=== PATIENT | female | born 1985 ===

== ENCOUNTER 2017-10-08 08:01 | Day surgery (SDC) | payer SELFPAY ==
[2017-10-08 08:52] VITALS: BMI 26.6
[2017-10-08 09:03] VITALS: RESP 18
[2017-10-08] MEDS ORDERED: Lidocaine 1% Inj (20ml) ONE (10:25)
--- NOTE | 2017-10-08 10:50 | CP.SDSHP ---
Same Day Surgery H & P - History Proposed Procedure: US guided thyroid cyst aspiration Pre-Op Diagnosis: thyroid cyst - Allergies Allergies: Allergies No Known Allergies Allergy (Verified 10/08/17 08:52) - Physical Exam Vital Signs: Vital Signs 10/08/17 10/08/17 09:00 10:25 Temperature 98.7 F 98.8 F Pulse Rate 81 72 Respiratory 18 18 Rate Blood Pressure 118/75 116/70 O2 Sat by Pulse 98 Oximetry - Impression Impression: 32 yo female w/ thyroid cyst; plan us guided aspiration - Date & Time Date: 10/08/17 Time: 10:35 Short Stay Discharge - Short Stay Discharge Admitting Diagnosis/Reason for Visit: E01.1 Disposition: HOME/ ROUTINE Referrals: FAMILY PROVIDER,NO [Primary Care Provider] -
--- NOTE | 2017-10-08 10:51 | PCM.SURG1 ---
Surgeon's Initial Post Op Note - Surgeon's Notes Surgeon: Philippe Hopkins MD [employer] Supervisor: None Type of Anesthesia: Local Pre-Operative Diagnosis: thyroid cyst Operative Findings: large right thyroid cyst Post-Operative Diagnosis: same Operation Performed: US guided thyroid cyst aspiration Specimen/Specimens Removed: 3 cc serous fluid Estimated Blood Loss: EBL {In ML}: 0 Date of Surgery/Procedure: 10/08/17 Time of Surgery/Procedure: 10:45
[2017-10-08 11:47] VITALS: BP 106/73; PULSE 63; TEMP 98.4; O2SAT 96
--- NOTE | 2017-10-08 14:55 | US ---
PROCEDURE: ULTRASOUND-GUIDED THYROID CYST ASPIRATION CLINICAL HISTORY: 32-year-old female with right thyroid cyst is referred to Interventional Radiology for ultrasound-guided thyroid cyst aspiration. COMPARISON: Recent outside thyroid ultrasound. PROCEDURE: 1. Ultrasound-guided thyroid cyst aspiration. PRE-PROCEDURE FINDINGS: 1. Large right thyroid cyst. POST-PROCEDURE FINDINGS: 1. No evidence of post-procedural complication. INTERVENTIONAL RADIOLOGIST: Philippe Hopkins M.D. (the attending was present for the entire procedure.) ANESTHESIA: None. MEDICATION: Lidocaine 1% for local subcutaneous analgesia. COMPLICATIONS: None. PROCEDURE DESCRIPTION AND FINDINGS: The risks, benefits, alternatives and possible complications of the procedure were fully discussed; all questions were answered and informed consent was obtained. The patient was brought into the interventional suite and a pre-procedure 'time-out' was performed. The patient was placed on the ultrasound table in the supine position and the neck was passively extended. The anterior neck was prepped and draped in the usual sterile fashion. Maximum sterile barrier precautions were maintained throughout the entire procedure. Preliminary focused ultrasound images of the thyroid demonstrate the previously identified cyst referred for aspiration. Following subcutaneous infiltration of lidocaine 1% for local analgesia, under ultrasound guidance, aspiration was performed of the right thyroid cyst, with real-time visualization of needle entry. The ultrasound images were permanently recorded and sent to the PACS. 3 cc of serous fluid was aspirated and submitted to the laboratory for analysis. Adequate hemostasis was achieved utilizing manual compression. A sterile adhesive dressing was applied over the puncture site. The patient tolerated the procedure well without immediate post-procedure complications and was discharged home in stable condition. IMPRESSION: Successful ultrasound-guided aspiration of the right thyroid cyst.
== END 2017-10-08 11:45 | disposition home or self-care (01) ==
LOC: H.OPSURG 08:01
PROVIDERS: ATTEND Dentist General Practice
DX: E04.1 Nontoxic single thyroid nodule (principal)
CPT/HCPCS: 60300; 88104; 88305; C1729

== ENCOUNTER 2018-06-26 10:36 | Emergency (ER) | payer SELFPAY ==
[2018-06-26 10:54] VITALS: O2SAT 100; BMI 24.1
[2018-06-26] MEDS ORDERED: Sodium Chloride 0.9% 1,000 ML IV STA (11:19)
--- NOTE | 2018-06-26 11:24 | ED PDOC ---
HPI:Nausea, Vomiting, Diarrhea Time Seen by Provider: 06/26/18 11:01 Chief Complaint (Nursing): GI Problem Chief Complaint (Provider): Nausea History Per: Patient History/Exam Limitations: no limitations Onset/Duration Of Symptoms: Days (today) Additional Complaint(s): Pt. with nausea, vomiting, diarrhea, nonbloody. No weakness. Also with room spinning dizziness. No LOC. No weakness, headaches, chest pain, dyspnea, fever, cough. No numbness, tingles. No new food or drinks. No abd pain. Past Medical History Reviewed: Nursing Documentation, Vital Signs Vital Signs: Last Vital Signs Temp 97 F L 06/26/18 10:52 Pulse 63 06/26/18 10:52 Resp 19 06/26/18 11:02 BP 103/64 06/26/18 10:52 Pulse Ox 100 06/26/18 10:52 - Medical History PMH: No Chronic Diseases - Surgical History Surgical History: No Surg Hx - Family History Family History: States: Unknown Family Hx - Living Arrangements Living Arrangements: With Family - Home Medications Home Medications: Ambulatory Orders Medication Instructions Recorded Meclizine [Meclizine*] 25 mg PO Q12 PRN #10 tab 06/26/18 - Allergies Allergies/Adverse Reactions: Allergies Allergy/AdvReac Type Severity Reaction Status Date / Time No Known Allergies Allergy Verified 06/26/18 10:59 Review of Systems ROS Statement: Except As Marked, All Systems Reviewed And Found Negative Gastrointestinal: Positive for: Nausea, Vomiting, Diarrhea Neurological: Positive for: Dizziness Physical Exam - Reviewed Nursing Documentation Reviewed: Yes Vital Signs Reviewed: Yes - Physical Exam Appears: Positive for: Non-toxic, No Acute Distress Head Exam: Positive for: ATRAUMATIC, NORMAL INSPECTION, NORMOCEPHALIC Skin: Positive for: Normal Color, Warm, DRY Eye Exam: Positive for: EOMI, Normal appearance, PERRL ENT: Positive for: Normal ENT Inspection Neck: Positive for: Normal, Painless ROM Cardiovascular/Chest: Positive for: Regular Rate, Rhythm Respiratory: Positive for: CNT, Normal Breath Sounds Gastrointestinal/Abdominal: Positive for: Normal Exam, Soft. Negative for: Tenderness Back: Positive for: Normal Inspection. Negative for: L CVA Tenderness, R CVA Tenderness Extremity: Positive for: Normal ROM. 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 Negative for: Motor/Sensory Deficits - Laboratory Results Result Diagrams: 06/26/18 11:53 06/26/18 11:53 Interpretation Of Abn Labs: no acute - ECG ECG: Positive for: Interpreted By Me, Viewed By Me ECG Rhythm: Positive for: Normal QRS, Normal ST Segment, Sinus Rhythm O2 Sat by Pulse Oximetry: 100 Pulse Ox Interpretation: Normal - Progress ED Course And Treament: 1236: Stable. AAOx3. Pain free. Tolerated PO. Ambulated with no issues. Disposition - Clinical Impression Clinical Impression: Dizziness, Vomiting, Diarrhea - Patient ED Disposition Is Patient to be Admitted: No Counseled Patient/Family Regarding: Studies Performed, Diagnosis, Need For Followup, Rx Given - Disposition Referrals: [facility] [Outside] - 06/28/18 Disposition: Routine/Home Disposition Time: 12:41 Condition: STABLE Additional Instructions: Return if not better in 3 days. Prescriptions: Meclizine [Meclizine*] 25 mg PO Q12 PRN #10 tab PRN Reason: Dizziness Instructions: Dizziness, Nonvertigo, (DC), Diarrhea in Adolescents and Adults, Nausea and Vomiting, Adult
[2018-06-26 11:56] LABS: BASO % 0.6 % (0.0-2.0); EOS % 0.3 % (0.0-4.0); HEMOGLOBIN 13.5 g/dL (12.0-16.0); LYMPH # 0.6 K/uL (1.0-4.3); LYMPH % 7.9 % (20.0-40.0); MEAN CELL VOLUME 94.4 fl (81.0-99.0); MEAN CORPUSCULAR HEMOGLOBIN 32.6 pg (27.0-31.0); MEAN CORPUSCULAR HGB CONC 34.6 g/dL (33.0-37.0); MEAN PLATELET VOLUME 9.3 fl (7.2-11.7); MONO # 0.2 K/uL (0.0-0.8); MONO % 2.6 % (0.0-10.0); NEUT # 6.4 K/uL (1.8-7.0); NEUT % 88.6 % (50.0-75.0); PLATELET COUNT 217 K/uL (130-400); RBC 4.13 Mil/uL (3.80-5.20); RED CELL DISTRIBUTION WIDTH 12.3 % (11.5-14.5); WHITE BLOOD COUNT 7.2 K/uL (4.8-10.8)
[2018-06-26 12:07] LABS: ALB/GLOB RATIO 1.1 (1.0-2.1); ALBUMIN 3.9 g/dL (3.5-5.0); ALT/SGPT 29 U/L (9-52); AST/SGOT 20 U/L (14-36); BLOOD UREA NITROGEN 7 mg/dl (7-17); CALCIUM 9.1 mg/dL (8.4-10.2); GFR NON-AFRICAN AMERICAN > 60
[2018-06-26 12:51] LABS: BASOPHIL 2 % (0-2); LYMPHOCYTE 7 % (20-50); MONOCYTE 4 % (0-10); NEUTROPHIL 87 % (42-75); PLATELET ESTIMATE NORMAL (NORMAL); TOTAL CELLS COUNTED 100
[2018-06-26 12:52] LABS: ANISOCYTOSIS SLIGHT; LARGE PLATELETS PRESENT; TEARDROP CELLS SLIGHT
[2018-06-26 13:03] VITALS: BP 107/64; PULSE 67; RESP 18; TEMP 98
--- NOTE | 2018-06-26 17:58 | CARD ---
APPROVED REPORT Date of service: 06/26/2018 EKG Measurement Heart [id number] <Conclusion> Sinus bradycardia with sinus arrhythmia Incomplete right bundle branch block Borderline ECG
== END 2018-06-26 13:22 | disposition home or self-care (01) ==
LOC: H.ER 10:36
DX: R42 Dizziness and giddiness (principal); R11.2 Nausea with vomiting, unspecified; R19.7 Diarrhea, unspecified
CPT/HCPCS: 80053; 81025; 85025; 93005; 96360; 99284; J7030